=== PATIENT | female | born 1985 | race Caucasian/White ===

== ENCOUNTER → 2019-03-07 | Outpatient (CLI) | payer BC ==
[~2019-03-07] MED LIST: AMOX1TAB64 PO; BIRTH CONTROL; DESO1TAB70 PO; IBUPROFEN PO; NAPR220C2 PO; OMNIPAQUE 350 MG/ML, 100ML BOTTLE ONE; ONDA4TAB13 PO; OXYC-306 PO
== END | disposition home or self-care (01) ==
LOC: CFH 11:47
PROVIDERS: ATTEND Surgery
DX: J98.11 Atelectasis (principal); I26.99 Other pulmonary embolism without acute cor pulmonale; J98.6 Disorders of diaphragm; Z90.49 Acquired absence of other specified parts of digestive tract; Z82.49 Family history of ischemic heart disease and other diseases of the circulatory system; Z82.5 Family history of asthma and other chronic lower respiratory diseases
CPT/HCPCS: 71046; 71275; Q9967

== ENCOUNTER 2019-03-08 06:14 | Day surgery (SDC) | payer BC ==
[~2019-03-08] VITALS: Ht 165.1 cm; Wt 106.0 kg
[~2019-03-08 06:14] MED LIST changes: -DESO1TAB70 PO; -IBUPROFEN PO; -NAPR220C2 PO; -OMNIPAQUE 350 MG/ML, 100ML BOTTLE ONE
[2019-03-08] MEDS ORDERED: NAPR220C2 PO (07:09)
[2019-03-08] MEDS ORDERED: DESO1TAB70 PO (07:09)
[2019-03-08] MEDS ORDERED: IBUPROFEN PO (07:09)
[2019-03-08] MEDS ORDERED: SODIUM CHLORIDE 0.9% 1,000 ML IV SCH (07:11)
[2019-03-08 07:12] VITALS: BP 135/88
[2019-03-08 07:22] LABS: HCG UR SG 1.029 (1.003-1.030)
[2019-03-08 08:13] LABS: INTERNATIONAL NORMALIZED RATIO 0.93 (0.93-1.1); PROTHROMBIN TIME 9.8 Seconds (9.6-11.5)
[2019-03-08] MEDS ORDERED: LIDOCAINE 1%, 20ML ONE (08:30)
[2019-03-08] MEDS ORDERED: DIPHENHYDRAMINE 50 MG/ML, 1ML ONE (09:08)
== END 2019-03-08 11:15 | disposition home or self-care (01) ==
LOC: OUT 06:14 → EDSTATUS 08:00 → OUT 11:15
PROVIDERS: ATTEND Surgery
DX: R93.2 Abnormal findings on diagnostic imaging of liver and biliary tract (principal); F41.8 Other specified anxiety disorders; Z79.891 Long term (current) use of opiate analgesic; Z79.01 Long term (current) use of anticoagulants; Z79.899 Other long term (current) drug therapy; Z90.49 Acquired absence of other specified parts of digestive tract
CPT/HCPCS: 36415; 49405; 81025; 85610; 87070; 87075; 87205; 99156; 99157; C1729; C1769; C1894; J1200; J7030; 75989; 76942

== ENCOUNTER 2019-03-27 05:52 | Day surgery (SDC) | payer BC ==
[~2019-03-27] VITALS: Ht 165.1 cm; Wt 106.0 kg
[~2019-03-27 05:52] MED LIST changes: +DESO1TAB70 PO; +IBUPROFEN PO; +NAPR220C2 PO
[2019-03-27] MEDS ORDERED: LACTATED RINGERS 1,000 ML IV SCH (06:41)
[2019-03-27 07:14] VITALS: BP 129/89
[2019-03-27] MEDS ORDERED: MIDAZOLAM 1 MG/ML, 2ML ONE (07:22)
[2019-03-27] MEDS ORDERED: FENTANYL PF 100 MCG/2ML ONE (07:22)
[2019-03-27] MEDS ORDERED: LIDOCAINE 2% 100MG/5ML SYRINGE ONE (07:42)
[2019-03-27] MEDS ORDERED: LORazepam 2 MG/ML, 1ML IVPush PRN (08:00)
[2019-03-27] MEDS ORDERED: ONDANSETRON ODT 8 MG PO PRN (08:00)
[2019-03-27] MEDS ORDERED: ONDANSETRON 2MG/ML, 2ML IV PRN (08:00)
[2019-03-27] MEDS ORDERED: ACETAMINOPHEN 325 MG TABLET PO PRN (08:00)
[2019-03-27] MEDS ORDERED: FENTANYL PF 100 MCG/2ML IV PRN (08:00)
[2019-03-27] MEDS ORDERED: PROMETHAZINE 25 MG/ML, 1ML IV PRN (08:00)
[2019-03-27] MEDS ORDERED: OXYcodone 5 MG/5 ML ORAL.SOL UDC PO PRN (08:00)
[2019-03-27] MEDS ORDERED: CEFAZOLIN 1,000 MG ONE (08:32)
[2019-03-27] MEDS ORDERED: GLYCOPYRROLATE 0.2MG/1ML, 5ML ONE (08:32)
[2019-03-27] MEDS ORDERED: DEXAMETHASONE 4 MG/ML, 1ML ONE (08:32)
[2019-03-27] MEDS ORDERED: SUCCINYLCHOLINE 20 MG/ML, 10ML ONE (08:32)
[2019-03-27] MEDS ORDERED: ROCURONIUM 10MG/ML,5ML ONE (08:32)
[2019-03-27] MEDS ORDERED: ONDANSETRON 2MG/ML, 2ML ONE (08:32)
[2019-03-27] MEDS ORDERED: PROPOFOL 10 MG/ML, 20ML ONE (08:32)
[2019-03-27] MEDS ORDERED: NEOSTIGMINE 1 MG/ML, 10ML ONE (08:32)
[2019-03-27] MEDS ORDERED: ALBUTEROL SULFATE 2.5 MG/3 ML ONE (08:34)
[2019-03-27] MEDS ORDERED: ALBUTEROL SULFATE 2.5 MG/3 ML NPPB PRN (09:00)
[2019-03-27] MEDS ORDERED: OMNIPAQUE 350 MG/ML, 50 ML BOTTLE ONE (13:35)
== END 2019-03-27 10:02 | disposition home or self-care (01) ==
LOC: OUT 05:52
DX: K91.5 Postcholecystectomy syndrome (principal); J45.909 Unspecified asthma, uncomplicated; F41.9 Anxiety disorder, unspecified; E66.9 Obesity, unspecified; Z68.38 Body mass index [BMI] 38.0-38.9, adult
CPT/HCPCS: 43274; 74328; 81025; 94640; C1769; C1894; C2625; J0330; J0690; J1100; J2250; J2405; J2704; J2710; J3010; J7120; Q9967

== ENCOUNTER 2019-03-28 12:05 | Inpatient (IN) | payer BC ==
[~2019-03-28] VITALS: Ht 165.1 cm; Wt 110.2 kg
--- NOTE | 2019-03-28 12:17 | NUR ---
pt amb to room 26. chagned into gown. pt up self with steady gait to rr to provideurine sample.
--- NOTE | 2019-03-28 12:26 | NUR ---
pt to ed for abd pain after ercp and bile drain removal yesterday. pt states pain is buq and periumbilical, worse with deep inspiration. pt connected to all monitors. vss. no needs expressed. call light within reach. EILEEN Gomez to bs for assessment. awaiting orders.
[2019-03-28] MEDS ORDERED: ONDANSETRON 2MG/ML, 2ML ONE (12:42)
[2019-03-28] MEDS ORDERED: HYDROmorphone 1 MG/ML, 1ML VIAL ONE ×2 (12:42→13:59)
[2019-03-28] MEDS: HYDROmorphone 2 MG/ML, 1ML IVPush PRN ×4 (12:44→21:26)
--- NOTE | 2019-03-28 12:47 | NUR ---
pt resting in room. vss. piv established and labs drawn. pt medicated per jul. tolerated well. orders received. awaiting us.
[2019-03-28 12:53] LABS: BASOPHILS % (AUTO) 0 % (0-1); EOSINOPHILS # (AUTO) 0.02 x10^3/uL (0-0.4); EOSINOPHILS % (AUTO) 0 % (1-7); LYMPHOCYTES # (AUTO) 1.86 x10^3/uL (1-3.4); LYMPHOCYTES % (AUTO) 13 % (22-44); MD NO; MEAN CORPUSCULAR HEMOGLOBIN 30.3 pg (27.0-34.8); MEAN CORPUSCULAR HGB CONC 32.8 g/dL (32.4-35.8); MEAN CORPUSCULAR VOLUME 92.3 fL (80-100); MEAN PLATELET VOLUME 9.8 fL (7.4-10.4); MONOCYTES # (AUTO) 0.44 x10^3/uL (0.2-0.8); MONOCYTES % (AUTO) 3 % (2-9); NEUTROPHILS # (AUTO) 11.68 x10^3/uL (1.8-6.8); NEUTROPHILS % (AUTO) 84 % (42-75); PLATELET COUNT 363 x10^3/uL (130-400); RED BLOOD COUNT 4.85 x10^6/uL (3.82-5.3); RED CELL DISTRIBUTION WIDTH 15.5 % (9.6-15.2)
[2019-03-28 12:58] LABS: INTERNATIONAL NORMALIZED RATIO 0.96 (0.93-1.1); PROTHROMBIN TIME 10.1 Seconds (9.6-11.5)
[2019-03-28] MEDS ORDERED: ONDANSETRON 2MG/ML, 2ML IVPush ONE (13:00)
[2019-03-28] MEDS ORDERED: SODIUM CHLORIDE FLUSH 10ML SYR IVF ONE (13:00)
--- NOTE | 2019-03-28 13:02 | NUR ---
REPORT RECEIVED FROM PAUL VARGAS, ASSUMING CARE OF PT AT THIS TIME. PT BEING TAKEN TO US NOW
[2019-03-28 13:10] LABS: ALBUMIN 3.8 g/dL (3.4-5.0); ANION GAP 8 mmol/L (5-15); CHLORIDE 108 mmol/L (98-107)
[2019-03-28 13:13] LABS: ALANINE AMINOTRANSFERASE 36 U/L (12-78); ALKALINE PHOSPHATASE 71 U/L (45-117); BILIRUBIN,TOTAL 0.4 mg/dL (0.2-1.0); CREATININE 1.04 mg/dL (0.55-1.02); TOTAL PROTEIN 8.3 g/dL (6.4-8.2)
[2019-03-28 13:16] LABS: HCG UR SG 1.025 (1.003-1.030); MICROSCOPIC INDICATED
[2019-03-28 13:21] LABS: CULTURE INDICATED? NO
[2019-03-28] MEDS: SODIUM CHLORIDE 0.9% 1,000 ML IV SCH ×3 (14:00→20:40)
[2019-03-28] MEDS ORDERED: KETOROLAC 30 MG/1 ML IVPush ONE (14:00)
[2019-03-28] MEDS ORDERED: SODIUM CHLORIDE 0.9% 1,000ML IVBOLUS ONE (14:00)
--- NOTE | 2019-03-28 14:09 | NUR ---
PT MEDICATED FOR PAIN, NEW ORDERS RECEIVED AT THIS TIME. PT TO BE ADMITTED TO [facility]. MOTHER AT BEDSIDE. CALL LIGHT WITHIN REACH. VSS
[2019-03-28 14:15] LABS: CHOL/HDL RATIO 4.3; LDL/HDL RATIO 2.4 (0.5-3.0)
[2019-03-28] MEDS ORDERED: KETOROLAC 30 MG/1 ML ONE (14:25)
--- NOTE | 2019-03-28 14:43 | NUR ---
REPORT GIVEN TO ARON RN, PT READY FOR TRANSPORT TO FLOOR
[2019-03-28] MEDS ORDERED: POLYETHYLENE GLYCOL 17 GM PACKET PO PRN (15:30)
[2019-03-28] MEDS ORDERED: ONDANSETRON ODT 4 MG PO PRN (15:30)
[2019-03-28] MEDS ORDERED: TRAZODONE 50MG TABLET PO PRN (15:30)
[2019-03-28] MEDS ORDERED: GUAIFENESIN/DM 200-20MG, 10ML UDC PO PRN (15:30)
[2019-03-28] MEDS ORDERED: ONDANSETRON 2MG/ML, 2ML IVPush PRN (15:30)
[2019-03-28] MEDS ORDERED: hydrALAzine 20 MG/ML, 1ML IVPush PRN (15:30)
[2019-03-28] MEDS: LACTATED RINGERS 1,000 ML IV SCH ×3 (15:59→23:11)
[2019-03-28 16:07] VITALS: BP 135/89
[2019-03-28 20:36] VITALS: BP 117/79
[2019-03-29] MEDS: HYDROmorphone 2 MG/ML, 1ML IVPush PRN ×5 (02:11→21:02)
[2019-03-29] MEDS: LACTATED RINGERS 1,000 ML IV SCH ×5 (02:12→20:54)
[2019-03-29] MEDS: SODIUM CHLORIDE 0.9% 1,000 ML IV SCH ×2 (03:20)
[2019-03-29 04:53] VITALS: BP 111/74
[2019-03-29 05:57] LABS: ANION GAP 4 mmol/L (5-15); CALCIUM 8.1 mg/dL (8.5-10.1); CHLORIDE 109 mmol/L (98-107); CREATININE 0.69 mg/dL (0.55-1.02)
[2019-03-29 06:02] LABS: BASOPHILS # (AUTO) 0.03 x10^3/uL (0-0.1); BASOPHILS % (AUTO) 0 % (0-1); EOSINOPHILS # (AUTO) 0.14 x10^3/uL (0-0.4); EOSINOPHILS % (AUTO) 1 % (1-7); LYMPHOCYTES # (AUTO) 1.81 x10^3/uL (1-3.4); LYMPHOCYTES % (AUTO) 18 % (22-44); MD NO; MEAN CORPUSCULAR HEMOGLOBIN 29.7 pg (27.0-34.8); MEAN CORPUSCULAR HGB CONC 32.2 g/dL (32.4-35.8); MEAN CORPUSCULAR VOLUME 92.1 fL (80-100); MEAN PLATELET VOLUME 9.2 fL (7.4-10.4); MONOCYTES # (AUTO) 0.88 x10^3/uL (0.2-0.8); MONOCYTES % (AUTO) 9 % (2-9); NEUTROPHILS # (AUTO) 7.42 x10^3/uL (1.8-6.8); NEUTROPHILS % (AUTO) 72 % (42-75); PLATELET COUNT 253 x10^3/uL (130-400); RED BLOOD COUNT 3.88 x10^6/uL (3.82-5.3); RED CELL DISTRIBUTION WIDTH 15.8 % (9.6-15.2)
[2019-03-29 06:54] VITALS: BP 107/70
[2019-03-29 14:11] VITALS: BP 110/71
[2019-03-29 21:38] VITALS: BP 136/88
[2019-03-29] MEDS: KETOROLAC 30 MG/1 ML IV PRN (22:01)
[2019-03-30] MEDS: LACTATED RINGERS 1,000 ML IV SCH ×2 (02:43→09:59)
[2019-03-30 04:40] VITALS: BP 122/83
[2019-03-30] MEDS: KETOROLAC 30 MG/1 ML IV PRN ×3 (06:33→19:38)
[2019-03-30 07:04] VITALS: BP 135/86
[2019-03-30 09:12] LABS: BASOPHILS # (AUTO) 0.03 x10^3/uL (0-0.1); BASOPHILS % (AUTO) 0 % (0-1); EOSINOPHILS # (AUTO) 0.19 x10^3/uL (0-0.4); EOSINOPHILS % (AUTO) 2 % (1-7); LYMPHOCYTES # (AUTO) 1.35 x10^3/uL (1-3.4); LYMPHOCYTES % (AUTO) 13 % (22-44); MD NO; MEAN CORPUSCULAR HEMOGLOBIN 29.3 pg (27.0-34.8); MEAN CORPUSCULAR HGB CONC 32.1 g/dL (32.4-35.8); MEAN CORPUSCULAR VOLUME 91.2 fL (80-100); MEAN PLATELET VOLUME 9.3 fL (7.4-10.4); MONOCYTES # (AUTO) 0.72 x10^3/uL (0.2-0.8); MONOCYTES % (AUTO) 7 % (2-9); NEUTROPHILS # (AUTO) 7.93 x10^3/uL (1.8-6.8); NEUTROPHILS % (AUTO) 78 % (42-75); PLATELET COUNT 266 x10^3/uL (130-400); RED BLOOD COUNT 4.07 x10^6/uL (3.82-5.3); RED CELL DISTRIBUTION WIDTH 15.2 % (9.6-15.2)
[2019-03-30 09:23] LABS: ALBUMIN 2.8 g/dL (3.4-5.0); ANION GAP 8 mmol/L (5-15); CALCIUM 8.7 mg/dL (8.5-10.1); CHLORIDE 105 mmol/L (98-107)
[2019-03-30 09:27] LABS: ALANINE AMINOTRANSFERASE 30 U/L (12-78); ALKALINE PHOSPHATASE 80 U/L (45-117); BILIRUBIN,TOTAL 0.8 mg/dL (0.2-1.0); CREATININE 0.68 mg/dL (0.55-1.02); TOTAL PROTEIN 6.9 g/dL (6.4-8.2)
[2019-03-30 14:22] VITALS: BP 135/87
[2019-03-30] MEDS: HYDROmorphone 2 MG/ML, 1ML IVPush PRN ×2 (14:49→18:42)
[2019-03-30 20:12] VITALS: BP 143/93
[2019-03-31] MEDS: KETOROLAC 30 MG/1 ML IV PRN ×3 (01:15→20:10)
[2019-03-31 02:00] VITALS: BP 109/76
[2019-03-31 06:15] LABS: CHLORIDE 110 mmol/L (98-107)
[2019-03-31 06:23] LABS: ALANINE AMINOTRANSFERASE 20 U/L (12-78); ALBUMIN 2.5 g/dL (3.4-5.0); ALKALINE PHOSPHATASE 64 U/L (45-117); ANION GAP 7 mmol/L (5-15); BILIRUBIN,TOTAL 0.4 mg/dL (0.2-1.0); CALCIUM 8.4 mg/dL (8.5-10.1); CREATININE 0.68 mg/dL (0.55-1.02); TOTAL PROTEIN 6.1 g/dL (6.4-8.2)
[2019-03-31 08:21] VITALS: BP 130/83
[2019-03-31] MEDS: HYDROcodone/APAP 5/325 TABLET PO PRN ×2 (09:48→16:41)
[2019-03-31 15:59] VITALS: BP 141/81
[2019-03-31] MEDS: LACTATED RINGERS 1,000 ML IV SCH ×2 (16:41→23:19)
[2019-03-31 19:50] VITALS: BP 132/103
[2019-03-31 20:43] VITALS: BP 132/86
[2019-04-01 01:52] VITALS: BP 132/85
[2019-04-01] MEDS: HYDROcodone/APAP 5/325 TABLET PO PRN (06:05)
[2019-04-01 06:29] VITALS: BP 134/86
[2019-04-01] MEDS: LACTATED RINGERS 1,000 ML IV SCH (07:00)
[2019-04-01] MEDS: KETOROLAC 30 MG/1 ML IV PRN (09:23)
[2019-04-01] MEDS ORDERED: HYDR-3237 PO (09:44)
[2019-04-01] MEDS ORDERED: ONDA4TAB7 PO (13:23)
== END 2019-04-01 11:47 | disposition home or self-care (01) | DRG 440 ==
LOC: ED 13:53 → INTOOBSV 13:54 → EDIP 13:54 → UNDOADMOB 13:54 → ED 14:09 → 3N 15:13 → EDIP 15:35 → OBSVTOIN 03-29 11:25 → DCLOUNGE 04-01 11:40
PROVIDERS: ADMIT Hospitalist; ATTEND Hospitalist
DX: K85.90 Acute pancreatitis without necrosis or infection, unspecified (principal); E83.42 Hypomagnesemia; N28.9 Disorder of kidney and ureter, unspecified
CPT/HCPCS: 36415; 76700; 80048; 80053; 80061; 81001; 81025; 83690; 83735; 84100; 85025; 85610; G0378; J1170; J1885; J2405; J7030; J7120

== ENCOUNTER 2019-04-22 12:28 | Emergency (ER) | payer BC ==
[~2019-04-22] VITALS: Ht 162.6 cm; Wt 104.9 kg
[~2019-04-22 12:28] MED LIST changes: +HYDR-3237 PO; +ONDA4TAB7 PO
[2019-04-22] MEDS ORDERED: DESO1TAB70 PO (13:01)
--- NOTE | 2019-04-22 13:05 | NUR ---
DR. ARITA AT BEDSIDE.
[2019-04-22 13:33] LABS: BASOPHILS # (AUTO) 0.01 x10^3/uL (0-0.1); BASOPHILS % (AUTO) 0 % (0-1); EOSINOPHILS % (AUTO) 1 % (1-7); LYMPHOCYTES # (AUTO) 1.57 x10^3/uL (1-3.4); LYMPHOCYTES % (AUTO) 22 % (22-44); MD NO; MEAN CORPUSCULAR HEMOGLOBIN 30.2 pg (27.0-34.8); MEAN CORPUSCULAR HGB CONC 32.7 g/dL (32.4-35.8); MEAN CORPUSCULAR VOLUME 92.5 fL (80-100); MEAN PLATELET VOLUME 9.9 fL (7.4-10.4); MONOCYTES # (AUTO) 0.55 x10^3/uL (0.2-0.8); MONOCYTES % (AUTO) 8 % (2-9); NEUTROPHILS # (AUTO) 4.91 x10^3/uL (1.8-6.8); NEUTROPHILS % (AUTO) 69 % (42-75); PLATELET COUNT 325 x10^3/uL (130-400); RED BLOOD COUNT 4.45 x10^6/uL (3.82-5.3); RED CELL DISTRIBUTION WIDTH 15.7 % (9.6-15.2)
[2019-04-22 13:46] LABS: ALANINE AMINOTRANSFERASE 38 U/L (12-78); ALBUMIN 3.6 g/dL (3.4-5.0); ANION GAP 6 mmol/L (5-15); CALCIUM 9.2 mg/dL (8.5-10.1); CHLORIDE 110 mmol/L (98-107); CREATININE 0.83 mg/dL (0.55-1.02)
[2019-04-22 13:48] LABS: ALKALINE PHOSPHATASE 45 U/L (45-117); BILIRUBIN,TOTAL 0.3 mg/dL (0.2-1.0); TOTAL PROTEIN 7.7 g/dL (6.4-8.2)
--- NOTE | 2019-04-22 14:58 | NUR ---
DOES PT HAVE IV FOR CT ABD/PEL WITH CONTRAST?
--- NOTE | 2019-04-22 15:05 | NUR ---
PIV INITIATED: 20G LAC.
[2019-04-22] MEDS ORDERED: OMNIPAQUE 350 MG/ML, 100ML BOTTLE ONE (15:23)
--- NOTE | 2019-04-22 15:55 | NUR ---
PT BACK FROM IMAGING, RESTING IN BED, CALL LIGHT IN REACH.
--- NOTE | 2019-04-22 16:52 | NUR ---
PT RESTING IN BED. CALL LIGHT IN REACH.
[2019-04-22] MEDS ORDERED: ACETAMINOPHEN 500 MG TABLET ONE (17:11)
--- NOTE | 2019-04-22 17:17 | NUR ---
JEMAL AT BEDSIDE FOR DISCUSSION OF POC
[2019-04-22 17:18] VITALS: BP 164/98
--- NOTE | 2019-04-22 17:21 | NUR ---
PATIENTS MOTHER CALLED TO TALK TO ERMD. OK WITH PATIENT.
[2019-04-22] MEDS ORDERED: ACETAMINOPHEN 500 MG TABLET PO ONE (17:30)
== END 2019-04-22 17:34 | disposition home or self-care (01) ==
LOC: ED 14:02
DX: R10.11 Right upper quadrant pain (principal); Z90.49 Acquired absence of other specified parts of digestive tract
CPT/HCPCS: 36415; 74177; 80053; 83605; 83690; 85025; 99284; Q9967

== ENCOUNTER 2019-05-11 10:20 | Day surgery (SDC) | payer BC ==
[~2019-05-11] VITALS: Ht 162.6 cm; Wt 104.4 kg
[2019-05-11] MEDS ORDERED: LACTATED RINGERS 1,000 ML IV SCH (10:38)
[2019-05-11 10:49] VITALS: BP 128/88
[2019-05-11] MEDS ORDERED: DIAZ5TAB PO (10:54)
[2019-05-11 11:27] LABS: HCG UR SG 1.023 (1.003-1.030)
[2019-05-11] MEDS ORDERED: FENTANYL PF 100 MCG/2ML ONE (12:15)
[2019-05-11] MEDS ORDERED: ROCURONIUM 10MG/ML,5ML ONE (12:39)
[2019-05-11] MEDS ORDERED: DEXAMETHASONE 4 MG/ML, 1ML ONE (12:39)
[2019-05-11] MEDS ORDERED: ONDANSETRON 2MG/ML, 2ML ONE (12:39)
[2019-05-11] MEDS ORDERED: NEOSTIGMINE 1 MG/ML, 10ML ONE (12:39)
[2019-05-11] MEDS ORDERED: GLYCOPYRROLATE 0.2MG/1ML, 5ML ONE (12:39)
[2019-05-11] MEDS ORDERED: SUCCINYLCHOLINE 20 MG/ML, 10ML ONE (12:39)
[2019-05-11] MEDS ORDERED: PROPOFOL 10 MG/ML, 20ML ONE (12:39)
[2019-05-11] MEDS ORDERED: CEFAZOLIN 1,000 MG ONE (12:39)
[2019-05-11] MEDS ORDERED: OMNIPAQUE 350 MG/ML, 50 ML BOTTLE ONE (12:45)
[2019-05-11] MEDS ORDERED: INDOMETHACIN 50 MG SUPP.RECT ONE (12:54)
[2019-05-11] MEDS ORDERED: INDOMETHACIN 50 MG SUPP.RECT PR ONE (13:00)
== END 2019-05-11 13:55 | disposition home or self-care (01) ==
LOC: OUT 10:20
DX: K91.89 Other postprocedural complications and disorders of digestive system (principal); E66.01 Morbid (severe) obesity due to excess calories; Z68.38 Body mass index [BMI] 38.0-38.9, adult; Z90.49 Acquired absence of other specified parts of digestive tract
CPT/HCPCS: 43276; 74328; 81025; C1769; J0330; J0690; J1100; J2405; J2704; J3010; J7120; Q9967; J2710